=== PATIENT | female | born 1945 | race Caucasian/White ===

== ENCOUNTER 2016-12-30 22:51 | Emergency (ER) | payer OTHER ==
[~2016-12-30] VITALS: Ht 149.9 cm; Wt 60.8 kg
[~2016-12-30 22:51] MED LIST: ALEN70TA52 PO; ASPI81CT33 PO; LOSA100T1 PO; METO50TA9 PO; MULT-1468 PO; SIMV40TA5 PO; [UNRECOGNIZED DRUG - CODE] PO
[2016-12-30 22:55] VITALS: BP 196/95
[2016-12-31] MEDS ORDERED: HYDROmorphone 1 MG/ML AMP IVP ONE
[2016-12-31 03:21] VITALS: BP 151/86
== END 2016-12-31 03:19 | disposition short-term general hospital (02) ==
LOC: MED 22:51
DX: M84.433A Pathological fracture, right radius, initial encounter for fracture (principal); M84.431A Pathological fracture, right ulna, initial encounter for fracture; M83.8 Other adult osteomalacia; J44.9 Chronic obstructive pulmonary disease, unspecified; I10 Essential (primary) hypertension; E78.00 Pure hypercholesterolemia, unspecified; Z88.1 Allergy status to other antibiotic agents; Z79.899 Other long term (current) drug therapy
CPT/HCPCS: 73090; 96374; 99284; J1170